=== PATIENT | female | born 1955 | race Caucasian/White ===

== ENCOUNTER 2025-01-04 14:23 | Emergency (ER) | payer MEDICARE ==
[2025-01-04] MEDS: cefTRIAXone 1 GM, Lidocaine 1% 2.1 ML IM ONE (15:20)
== END 2025-01-04 15:38 | disposition home or self-care (01) ==
LOC: JP.ED 14:23
DX: L03.113 Cellulitis of right upper limb (principal); E78.00 Pure hypercholesterolemia, unspecified; Z79.899 Other long term (current) drug therapy; W55.01XA Bitten by cat, initial encounter
CPT/HCPCS: 96372; 99283; J0696; J2003